=== PATIENT | female | born 1970 | race African-American/Black ===

== ENCOUNTER 2023-09-26 16:44 | Emergency (ER) | payer OTHER ==
[~2023-09-26] VITALS: Ht 160 cm; Wt 69.4 kg
[2023-09-26 17:05] VITALS: BP 145/94; TEMP 97.9
[2023-09-26] MEDS ORDERED: KETOROLAC TROMETHAMINE 15 MG/ML VIAL ONE (17:26)
[2023-09-26] MEDS: KETOROLAC TROMETHAMINE 15 MG/ML VIAL IM ONE (17:46)
[2023-09-26] MEDS ORDERED: OXYC-128 PO (18:23)
[2023-09-26] MEDS ORDERED: ACET-2605 PO (18:23)
[2023-09-26] MEDS ORDERED: IBUP-1955 PO (18:23)
[2023-09-26 18:44] VITALS: O2SAT 99
== END 2023-09-26 18:45 | disposition home or self-care (01) ==
LOC: ER 16:44
DX: S42.211A Unspecified displaced fracture of surgical neck of right humerus, initial encounter for closed fracture (principal); Z79.899 Other long term (current) drug therapy; W01.0XXA Fall on same level from slipping, tripping and stumbling without subsequent striking against object, initial encounter; Y93.89 Activity, other specified; Y92.89 Other specified places as the place of occurrence of the external cause; Y99.8 Other external cause status
CPT/HCPCS: 99283; 29105; 73030; 96372; J1885